=== PATIENT | female | born 1930 | race Caucasian/White ===

== ENCOUNTER → 2016-12-21 | Day surgery (SDC) | payer MEDICARE ==
[~2016-12-21] VITALS: Ht 157.5 cm; Wt 65.0 kg
[~2016-12-21] MED LIST: 0.9% Sodium Chloride 1,000 ML IV SCH; ALEN40TA2 PO; ALEN70TA51 PO; ASCO-294 PO; ASPI-973 PO; CALC600T12 PO; CARV12.52 PO; CYAN1TAB42 PO; CYAN500T53 SL; FERR325C PO; FUR20 PO; LISI-571 PO; MULT-1018 PO; NITR0.4T6 SL; POTA10CA42 PO; SLO64 PO; Sodium Chloride LOK Flush 10 mL Syringe IV PRN; fentaNYL-PF 50 mCg/mL 2 mL Inj IVPUSH PRN
[2016-12-21 12:32] VITALS: BP 142/75; PULSE 71; RESP 18; O2SAT 98
[2016-12-21 13:39] VITALS: BP 127/67; PULSE 62; RESP 16; O2SAT 97
[2016-12-21 13:49] VITALS: BP 129/72; PULSE 66; RESP 15; O2SAT 99
--- NOTE | 2016-12-21 14:04 | ENDO ---
[address] [address] ENDOSCOPY PROCEDURE PATIENT: JEFF SCHWARTZ : 1930 MR#: [id number] ADMIT: 12/21/2016 JOB ID: [id number] DATE OF SERVICE: 12/21/2016 TYPE OF OPERATION: Esophagogastroduodenoscopy, biopsy, and colonoscopy. PREOPERATIVE DIAGNOSIS(ES): Iron deficiency anemia. POSTOPERATIVE DIAGNOSIS(ES): 1. Large hiatal hernia. 2. Normal colonoscopy. ANESTHESIA: Fentanyl 100 mcg, Versed 2 mg IV administered. COMPLICATIONS: None. BLOOD LOSS: Minimal. DESCRIPTION OF PROCEDURE: After risks and benefits explained to the patient, informed consent was obtained. After anesthesia administered, upper endoscope was then inserted in the mouth, intubated the esophagus, stomach, second portion of duodenum. Mucosa carefully examined. After procedure was done, the scope withdrawn, procedure terminated. Colonoscope was then inserted from rectum to the terminal ileum. Mucosa carefully examined. Prep of the patient was excellent. After procedure was done, the scope withdrawn, procedure terminated. FINDINGS: Upon inspection of the esophagus, esophagus was normal without masses, ulcers, or lesions. Z-line located at 38 cm from incisors. Upon entering the stomach, stomach was normal without masses, ulcers, or lesions. Retroflexion showed a large hiatal hernia. Duodenal bulb, first and second portion were normal. Biopsies taken at duodenum. On retroflexion, there was no evidence of Omid lesions. Upon inspection of the anus, no masses, hemorrhoids, ulcers, fissures that were seen throughout the entire examination. No polyps, masses, or lesions. Terminal ileum appeared normal. Retroflexion was normal. IMPRESSION: 1. Normal colonoscopy. 2. Large hiatal hernia. RECOMMENDATIONS: Await pathology results. Follow up with GI clinic as needed.
--- NOTE | 2016-12-27 09:32 | PATH ---
SURGICAL PATHOLOGY Attending Physician:Jayson Hill MD CASE STATUS: Signed Out PATIENT NAME: JEFF SCHWARTZ PID: [id number] : 1930 DATE COLLECTED:12/21/2016 00:00 SPECIMEN: Duodenum, Biopsy CLINICAL HISTORY: 1). DUODENUM BIOPSIES FINAL DIAGNOSIS: 1.DUODENUM BIOPSIES: DUODENAL MUCOSA WITH NO DIAGNOSTIC ALTERATIONS. Negative for inflammation, sprue, dysplasia, and malignancy. ICD10 R10.9 GROSS DESCRIPTION: Received in formalin, labeled with the patient' s name and "duodenum BX", is one fragment of caballero, soft tissue measuring 0.1 x 0.1 x 0.1 cm. The fragment is totally submitted in one cassette. ([id number]) MICRO DESCRIPTION: See diagnosis. ICD-9 CODES: CPT CODES: 1: 21475 Electronically Signed Out Kaity Carlson MD [facility] Pathology [facility] [address], [place] [address] Technical component performed at [facility], [facility] [address], [place], [address]
== END | disposition home or self-care (01) ==
LOC: END 00:25
PROVIDERS: ATTEND Internal Medicine Gastroenterology
DX: D50.9 Iron deficiency anemia, unspecified (principal); K44.9 Diaphragmatic hernia without obstruction or gangrene; I10 Essential (primary) hypertension; I50.32 Chronic diastolic (congestive) heart failure; R06.00 Dyspnea, unspecified; M48.00 Spinal stenosis, site unspecified; M81.0 Age-related osteoporosis without current pathological fracture; Z86.010 Personal history of colon polyps; Z79.82 Long term (current) use of aspirin
CPT/HCPCS: 43239; 45378; 99153; G0500; J2250; J3010; J7030